=== PATIENT | male | born 1960 | race Caucasian/White ===

== ENCOUNTER 2023-02-23 07:18 | Day surgery (SDC) | payer BC ==
[2023-02-23] MEDS ORDERED: fentaNYL 50 MCG/ML SDV ONE (07:30)
[2023-02-23] MEDS ORDERED: Midazolam 1 MG/ML 2 ML SDV ONE (07:30)
[2023-02-23] MEDS ORDERED: Propofol 200 MG/20 ML SDV ONE (07:30)
[2023-02-23 07:51] LABS: HEMATOCRIT 47.7 % (38.4-49.7); HEMOGLOBIN 16.7 g/dL (12.9-16.9); MEAN CORPUSCULAR HEMOGLOBIN 32.1 pg (31.6-35.5); MEAN CORPUSCULAR VOLUME 91.7 fL (81.4-99.0); RED BLOOD CELL COUNT 5.2 M/uL (4.14-5.76); WHITE BLOOD CELL COUNT,WBC 4.7 K/uL (3.2-11.0)
[2023-02-23] MEDS ORDERED: Lactated Ringers 1,000 ML IV SCH (08:00)
[2023-02-23 08:12] LABS: ALANINE AMINOTRANSFERASE,ALT 48 U/L (12-78); ALBUMIN 3.6 g/dL (3.4-5.0); ALKALINE PHOSPHATASE 64 U/L (46-116); ASPARTATE AMNIOTRANSFERASE,AST 26 U/L (15-37); BILIRUBIN TOTAL 1.1 mg/dL (0.2-1.0); BLOOD UREA NITROGEN,BUN 15 mg/dL (7-18); CALCIUM 8.7 mg/dL (8.5-10.1); CARBON DIOXIDE,CO2 24 mmol/L (21-32); CHLORIDE,CL 104 mmol/L (100-108); CREATININE 1.2 mg/dL (0.8-1.3); EST CRCL DRUG DOSING (CG) 75.16 mL/min; ESTIMATED GFR 69 mL/min (>60); GLUCOSE RANDOM 109 mg/dL (74-106); POTASSIUM,K 3.8 mmol/L (3.6-5.2); PROTEIN TOTAL,TP 7.1 g/dL (6.4-8.2); SODIUM,NA 138 mmol/L (140-148)
[2023-02-23 08:17] LABS: ANION GAP 13.8 mmol/L (5.0-14.0)
== END 2023-02-23 10:35 | disposition home or self-care (01) ==
LOC: JP.SDS 07:18
PROVIDERS: ATTEND Student in an Organized Health Care Education/Training Program
DX: Z12.11 Encounter for screening for malignant neoplasm of colon (principal); K57.30 Diverticulosis of large intestine without perforation or abscess without bleeding; R73.03 Prediabetes; I48.91 Unspecified atrial fibrillation; G47.33 Obstructive sleep apnea (adult) (pediatric); E78.5 Hyperlipidemia, unspecified; Z90.49 Acquired absence of other specified parts of digestive tract; Z87.19 Personal history of other diseases of the digestive system; Z98.0 Intestinal bypass and anastomosis status; Z98.890 Other specified postprocedural states
CPT/HCPCS: 36415; 45378; 80053; 85027; 93005; J2250; J2704; J3010; J7120

== ENCOUNTER 2023-02-24 06:23 | Day surgery (SDC) | payer BC ==
[2023-02-24] MEDS ORDERED: Midazolam 1 MG/ML 2 ML SDV ONE (07:08)
[2023-02-24] MEDS ORDERED: fentaNYL 50 MCG/ML SDV ONE (07:08)
[2023-02-24] MEDS ORDERED: Propofol 200 MG/20 ML SDV ONE (07:08)
[2023-02-24] MEDS ORDERED: Dextrose 5%-Lactated Ringers 1,000 ML IV SCH (07:15)
== END 2023-02-24 09:45 | disposition home or self-care (01) ==
LOC: JP.SDS 06:23
PROVIDERS: ATTEND Surgery
DX: Z12.11 Encounter for screening for malignant neoplasm of colon (principal); K57.30 Diverticulosis of large intestine without perforation or abscess without bleeding; I48.91 Unspecified atrial fibrillation; Z90.49 Acquired absence of other specified parts of digestive tract; Z98.0 Intestinal bypass and anastomosis status; Z87.19 Personal history of other diseases of the digestive system
CPT/HCPCS: 45378; 93005; J2250; J2704; J3010; J7121

== ENCOUNTER 2024-09-16 16:07 | Emergency (ER) | payer OTHER ==
[2024-09-16] MEDS: Apixaban 5 MG Tab PO ONE (19:05)
== END 2024-09-16 19:20 | disposition home or self-care (01) ==
LOC: JP.ED 16:07
DX: I26.99 Other pulmonary embolism without acute cor pulmonale (principal); Z90.49 Acquired absence of other specified parts of digestive tract; Z79.899 Other long term (current) drug therapy; Z79.82 Long term (current) use of aspirin
CPT/HCPCS: 99284; A9270-GY

== ENCOUNTER 2025-04-21 21:39 | Emergency (ER) | payer OTHER ==
[2025-04-21] MEDS ORDERED: Naloxone 0.4 MG/ML SDV IVPUSH PRN (22:49)
== END 2025-04-22 01:30 | disposition home health service (06) ==
LOC: JP.ED 21:39
DX: S29.012A Strain of muscle and tendon of back wall of thorax, initial encounter (principal); I48.91 Unspecified atrial fibrillation; Z79.82 Long term (current) use of aspirin; Z79.899 Other long term (current) drug therapy; Z79.01 Long term (current) use of anticoagulants; Z86.16 Personal history of COVID-19; W10.9XXA Fall (on) (from) unspecified stairs and steps, initial encounter; Y93.89 Activity, other specified
CPT/HCPCS: 70450; 71250; 72125; 96372; 99283; A9270; 76377; J1171